=== PATIENT | female | born 1970 | race Caucasian/White ===

== ENCOUNTER 2019-06-28 17:41 | Emergency (ER) | payer OTHER ==
[~2019-06-28] VITALS: Ht 152.4 cm; Wt 79.2 kg
[2019-06-28] MEDS ORDERED: OMEP10CASR PO (18:08)
[2019-06-28] MEDS ORDERED: LEVO200T4 PO (18:08)
[2019-06-28] MEDS ORDERED: FURO20TA2 PO (18:08)
[2019-06-28] MEDS ORDERED: FLUO40CA PO (18:08)
[2019-06-28] MEDS ORDERED: TOPA100T12 PO (18:08)
[2019-06-28] MEDS ORDERED: CORE12.5 PO (18:08)
[2019-06-28 18:23] LABS: BASO # 0.1 10^3/uL (0.0-0.2); BASO % 0.8 % (0.0-1.0); EOS # 0.2 10^3/uL (0.0-0.5); EOS % 2.3 % (0.0-3.0); HEMATOCRIT 28.9 % (36.0-47.0); HEMOGLOBIN 8.4 g/dl (12.0-15.5); LYMPH # 2.6 10^3/uL (1.5-5.0); LYMPH % 32.6 % (24.0-44.0); MEAN CORPUSCULAR HEMOGLOBIN 20.3 pg (27.0-33.0); MEAN CORPUSCULAR HGB CONC 29.1 g/dl (32.0-36.5); MONO % 12.5 % (0.0-5.0); NEUTROPHILS # 4.1 10^3/uL (1.5-8.5); NEUTROPHILS % 51.5 % (36.0-66.0); PLATELET COUNT, AUTOMATED 531 10^3/uL (150-450); RED BLOOD COUNT 4.13 10^6/uL (4.00-5.40); WHITE BLOOD COUNT 7.9 10^3/uL (4.0-10.0)
--- NOTE | 2019-06-28 18:28 | REP ---
Portable chest, 05:58 p.m., single AP view with the patient sitting: There are no comparisons. The lung lemus are clear. The cardiac size is normal. The sharon, mediastinum, and skeletal structures are unremarkable. Impression: Negative portable chest. Electronically Signed by Jaswant Hussein MD 06/28/2019 06:19 P
[2019-06-28 18:39] LABS: BLOOD UREA NITROGEN 16 MG/DL (7-18); CALCIUM LEVEL 8.3 MG/DL (8.5-10.1); CARBON DIOXIDE LEVEL 23 MEQ/L (21-32); CHLORIDE LEVEL 110 MEQ/L (98-107); CK-MB VALUE MASS < 1.0 NG/ML (<3.6); CPK CREATINE PHOSPHOKINASE 54 U/L (26-192); CREATININE FOR GFR 0.93 MG/DL (0.55-1.30); GLOMERULAR FILTRATION RATE > 60.0 (>51); GLUCOSE, FASTING 50 MG/DL (70-100); MB/CK RELATIVE INDEX 1.85 (< OR =4); POTASSIUM SERUM 3.6 MEQ/L (3.5-5.1); SODIUM LEVEL 141 MEQ/L (136-145); TROPONIN I < 0.02 NG/ML (< 0.10)
--- NOTE | 2019-06-28 21:04 | ECGEPIP ---
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
--- NOTE | 2019-06-28 21:05 | ECGEPIP ---
[facility] - ED Test Date: 2019-06-28 Pat Name: PABLO PEARCE Department: Room: - Gender: Female Card Lacer: : 1970 Requested By: Martha Mccormack Order Number: [id number] Reading MD: Martha Mccormack Measurements Intervals [place] Rate: 76 P: 17 [place]: 179 QRS: -16 QRSD: 96 T: 10 QT: 438 QTc: 494 Interpretive Statements SINUS RHYTHM LAD NSTTW abnormalities POSSIBLE SEPTAL INFARCT, AGE INDETERMINATE DECREASED RATE 06/28/19 Electronically Signed on 06-28-2019 21:05:11 EDT by Martha Mccormack
[2019-06-28 22:10] VITALS: BP 131/75
[2019-06-28 22:27] LABS: CK-MB VALUE MASS 1.1 NG/ML (<3.6); CPK CREATINE PHOSPHOKINASE 53 U/L (26-192); MB/CK RELATIVE INDEX 2.08 (< OR =4)
[2019-06-28 22:28] LABS: TROPONIN I < 0.02 NG/ML (< 0.10)
--- NOTE | 2019-06-30 07:25 | ECGEPIP ---
[facility] - ED Test Date: 2019-06-28 Pat Name: PABLO TEJEDA Department: Room: - Gender: Female Interpretive Program Coordinator: KCJ : 1970 Requested By: TEE DONALD Order Number: [id number] Reading MD: Martha Mccormack Measurements Intervals [place] Rate: 64 P: 23 [place]: 180 QRS: -20 QRSD: 101 T: 14 QT: 464 QTc: 482 Interpretive Statements SINUS RHYTHM PROLONGED QT INTERVAL LAD DELAYED R PROGRESSION DECREASED RATE 06/28/19 18:24 Electronically Signed on 06-30-2019 7:24:54 EDT by Martha Mccormack
== END 2019-06-28 22:44 | disposition home or self-care (01) ==
LOC: M ED 17:41
DX: R07.89 Other chest pain (principal); I51.9 Heart disease, unspecified; I10 Essential (primary) hypertension; K21.9 Gastro-esophageal reflux disease without esophagitis; E07.9 Disorder of thyroid, unspecified; F17.200 Nicotine dependence, unspecified, uncomplicated; Z79.899 Other long term (current) drug therapy; Z88.0 Allergy status to penicillin; Z88.8 Allergy status to other drugs, medicaments and biological substances

== ENCOUNTER 2019-12-06 09:44 | Inpatient (IN) | payer OTHER, SELFPAY ==
[~2019-12-06] VITALS: Ht 160 cm; Wt 79.9 kg
[2019-12-06] VITALS (16 sets, daily range): BP systolic 101–172; BP diastolic 54–85
[~2019-12-06 09:44] MED LIST: CARVedilol 12.5 MG TAB PO SCH; CORE12.5 PO; FLUO40CA PO; FLUoxetine 20 MG CAP PO SCH; FURO20TA2 PO; LEVO200T4 PO; NICOTINE 14 MG/24 HR TRANSDERMAL TD SCH; OMEP10CASR PO; TOPA100T12 PO; lisinopriL 10 MG TAB PO SCH
[2019-12-06 10:39] LABS: BASO # 0.1 10^3/uL (0.0-0.2); EOS # 0.3 10^3/uL (0.0-0.5); EOS % 3.1 % (0.0-3.0); HEMATOCRIT 31.2 % (36.0-47.0); HEMOGLOBIN 8.9 g/dl (12.0-15.5); LYMPH # 2.6 10^3/uL (1.5-5.0); LYMPH % 29.3 % (24.0-44.0); MEAN CORPUSCULAR HEMOGLOBIN 19.1 pg (27.0-33.0); MEAN CORPUSCULAR HGB CONC 28.5 g/dl (32.0-36.5); MEAN CORPUSCULAR VOLUME 66.8 fl (80.0-96.0); MONO # 0.8 10^3/uL (0.0-0.8); MONO % 9.1 % (0.0-5.0); NEUTROPHILS # 5.1 10^3/uL (1.5-8.5); NEUTROPHILS % 57.3 % (36.0-66.0); PLATELET COUNT, AUTOMATED 434 10^3/uL (150-450); RED BLOOD COUNT 4.67 10^6/uL (4.00-5.40); WHITE BLOOD COUNT 8.9 10^3/uL (4.0-10.0)
[2019-12-06] MEDS ORDERED: FUROSEMIDE 20 MG TAB PO ONE (10:45)
[2019-12-06] MEDS ORDERED: CARVedilol 12.5 MG TAB PO ONE (10:45)
[2019-12-06 10:58] LABS: ALBUMIN 3.9 GM/DL (3.2-5.2); ALT/SGPT 18 U/L (12-78); BILIRUBIN,DIRECT < 0.1 MG/DL (0.0-0.2); BILIRUBIN,TOTAL 0.2 MG/DL (0.2-1.0); TOTAL PROTEIN 8.4 GM/DL (6.4-8.2)
[2019-12-06] MEDS ORDERED: LORazepam 1 MG TAB PO ONE (11:00)
--- NOTE | 2019-12-06 11:14 | REP ---
Head CT without contrast: History: Hypertensive emergency. Comparison study: No comparison study. CT findings: Bone window settings demonstrate an intact bony calvarium. There is no evidence of skull fracture or incidental bony calvarial lesion. The visualized paranasal sinuses appear clear. No intraorbital abnormality is seen. On soft tissue window setting images; the lateral, third, and fourth ventricles are normal in size and position. Chamorro-white differentiation pattern is normal above and below the tentorium. There are is no evidence of intracranial hemorrhage. No mass, edema, infarction, or midline shift is seen. No extra-axial fluid collection is appreciated. Impression: Negative noncontrast head CT. Electronically Signed by Benjie Casey MD 12/06/2019 11:11 A
[2019-12-06 11:18] LABS: FREE T4 0.77 NG/DL (0.76-1.46)
--- NOTE | 2019-12-06 11:26 | REP ---
Chest x-ray: Single PA view. History: Hypertensive emergency. Comparison chest x-ray June 28, 2019. Findings: The lungs are symmetrically aerated and clear. Heart is not enlarged. EKG electrodes are seen. Pulmonary vasculature is not increased. No bony abnormalities seen. Impression: Negative PA chest x-ray. Electronically Signed by Benjie Casey MD 12/06/2019 11:18 A
[2019-12-06] MEDS ORDERED: niCARdipine IV 40 MG in IV 1 EA IV SCH ×3 (11:45→19:42)
[2019-12-06 12:20] LABS: CK-MB VALUE MASS 1.4 NG/ML (<3.6); CPK CREATINE PHOSPHOKINASE 99 U/L (26-192); MB/CK RELATIVE INDEX 1.41 (< OR =4); TROPONIN I < 0.02 NG/ML (< 0.10)
[2019-12-06] MEDS ORDERED: MOM 30ML SUSPENSION UDC PO PRN (12:30)
[2019-12-06] MEDS ORDERED: MAALOX 30 ML SUSP *UDC PO PRN (12:30)
[2019-12-06] MEDS ORDERED: LORazepam 2 MG/ML VIAL (J2060) IV PRN (12:30)
[2019-12-06] MEDS ORDERED: CARV12.5 PO (12:35)
[2019-12-06] MEDS ORDERED: ACET-683 PO (12:35)
[2019-12-06] MEDS ORDERED: ADVI100T PO (12:35)
[2019-12-06] MEDS ORDERED: OMEP20TA9 PO (12:35)
[2019-12-06] MEDS ORDERED: LEVO100T54 PO (12:35)
[2019-12-06] MEDS ORDERED: FURO20TA2 PO (12:35)
[2019-12-06] MEDS ORDERED: IBUP-1730 PO (12:38)
--- NOTE | 2019-12-06 12:50 | HPEPDOC ---
General Date of Admission Dec 06, 2019 at 12:24 Date of Service: Dec 06, 2019 Chief Complaint The patient is a 49-year-old female admitted with a reason for visit of Hypertensive Urgency. Source: RN/, RN notes reviewed, Old records Exam Limitations: No limitations Timing/Duration: Other (referred from ophthalmology clinic) Severity: Other (not applicable) Associated Symptoms: Other (not applicable) History of Present Illness 49 years old white female who looks very upset, crying, refusing to me provide me with any history of refusing to talk about her medical problems [facility] pressure. As per ED records, patient also complained of headache and she is been out of her meds for some time and she is been good and "going through a lot". History was obtained from M.D. nursing records. Patient's old records were reviewed as well, which include one Previous ED visit Home Medications Scheduled Carvedilol (Carvedilol) 12.5 Mg Tablet, 12.5 MG PO BID, (Reported) Furosemide (Furosemide) 20 Mg Tablet, 20 MG PO DAILY, (Reported) Levothyroxine Sodium (Levoxyl) 100 Mcg Tablet, 100 MCG PO DAILY, (Reported) Omeprazole (Omeprazole) 20 Mg Tablet.dr, 20 MG PO BID, (Reported) Scheduled PRN Acetaminophen (Acetaminophen) 500 Mg Tablet, 500 MG PO Q6H PRN for HEADACHE, (Reported) Ibuprofen (Ibuprofen) 200 Mg Tablet, 800 MG PO Q8H PRN for HEADACHE, (Reported) Allergies Coded Allergies: butorphanol (Verified Allergy, Intermediate, rash, 12/06/19) erythromycin base (Verified Allergy, Intermediate, rash, 12/06/19) melatonin (Verified Allergy, Intermediate, rash, 12/06/19) meperidine (Verified Allergy, Intermediate, rash, 12/06/19) phenytoin (Verified Allergy, Intermediate, rash , 12/06/19) Past Medical History Medical History Past medical, hypertension, hypothyroid, GERD, depression, headache Surgical History Appendectomy and left knee surgery, right shoulder surgery, tubal ligation and hysterectomy Social History * Smoker: current smoker Alcohol: Denies Drugs: denies A-FIB/CHADSVASC A-FIB History Current/History of A-Fib/PAF?: No Review of Systems Constitutional: Reports: Other (. Unable to obtained review of system as patient refuses to give me any history or speak to me) Physical Examination General Exam: Positive: Alert, Other (. Uncooperative, very upset, crying) Eye Exam: Positive: PERRLA, Conjunctiva & lids normal ENT Exam: Positive: Atraumatic Neck Exam: Positive: Supple Chest Exam: Positive: Clear to auscultation, Normal air movement Heart Exam: Positive: Rate Normal, Normal S1, Normal S2 Abdomen Exam: Positive: Normal bowel sounds, Soft Extremity Exam: Positive: Normal pulses Skin Exam: Positive: Nl turgor and temperature Neuro Exam: Positive: Other (patient not cooperative with neuro exam) Psych Exam: Positive: Other (, depression, crying, bizarre affect) Vital Signs Vital Signs Date Time Temp Pulse Resp B/P (MAP) Pulse Ox O2 Delivery O2 Flow Rate FiO2 12/06/19 12:00 98 20 275/155 (195) 99 Room Air 12/06/19 09:44 97.6 Laboratory Data Labs 24H Laboratory Tests 2 12/06/19 10:19: Immature Granulocyte % (Auto) 0.2, Neutrophils (%) (Auto) 57.3, Lymphocytes (%) (Auto) 29.3, Monocytes (%) (Auto) 9.1H, Eosinophils (%) (Auto) 3.1H, Basophils (%) (Auto) 1.0, Neutrophils # (Auto) 5.1, Lymphocytes # (Auto) 2.6, Monocytes # (Auto) 0.8, Eosinophils # (Auto) 0.3, Basophils # (Auto) 0.1, Nucleated Red Blood Cells % (auto) 0.0, Total Bilirubin 0.2, Direct Bilirubin < 0.1, Aspartate Amino Transf (AST/SGOT) 13, Alanine Aminotransferase (ALT/SGPT) 18, Alkaline Phosphatase 72, Total Creatine Kinase 99, Creatine Kinase MB 1.4, Creatine Kinase MB Relative Index 1.41, Troponin I < 0.02, Total Protein 8.4H, Albumin 3.9, Albumin/Globulin Ratio 0.87L, Thyroid Stimulating Hormone (TSH) 95.700H, Free Thyroxine 0.77 12/06/19 10:26: POC Glucose (Misc Panel) 99, POC Sodium (Misc Panel) 137, POC Potassium (Misc Panel) 3.7, POC Chloride (Misc Panel) 101, POC Total CO2 (Misc Panel) 28.0H, POC Blood Urea Nitrogen (Misc Panel 16, POC Ionized Calcium (Misc Panel) 4.6, POC Creatinine (Misc Panel) 1.1, POC Hematocrit (Misc Panel) 33.0L CBC/BMP Laboratory Tests 12/06/19 10:19 Problems (1) Hypertensive urgency Status: Acute Problem Text: 49 years old white female with past medical history of hypertension, on Coreg and Lasix at home. His noncompliance to med. Has not been taking her meds for some time. I'm unable to get good history, as she refuses to talk to me are cooperate with her history. Pt is very upset and agitated and easy crying in bed and does not wish to talk to anybody. . She was started on a Cardene drip in ED and we were asked to admit patient for further workup and treatment Admit patient to ICU Telemetry monitoring Start nicardipine drip with the rapid titration to achieve systolic blood pressure 150 or less Start Coreg 12.5 mg by mouth twice a day Hold by mouth Lasix Hold by mouth Topamax Serial troponin Echocardiogram DVT prophylaxis with heparin 2 g sodium diet Bed rest with bathroom privileges (2) Hypothyroidism Status: Chronic Problem Text: Patient is noncompliant to her meds. She was prescribed levothyroxine 200 g by mouth daily. Will restart her meds today with first dose stat , Free T4 also has been ordered (3) Depression Status: Chronic Problem Text: Will restart patient's fluoxetine 40 mg by mouth daily and I will also start 81 1 mg IV every 4 hours when necessary for anxiety Hold Topamax (4) Noncompliance with medication regimen Status: Acute Problem Text: Patient will be counseled 1. She is more cooperative and communicative Plan / VTE VTE Prophylaxis Ordered?: Yes WILFRID BARON MD Dec 06, 2019 12:49
[2019-12-06] MEDS: ACETAMINOPHEN TAB 650MG DOSE (2X325MG) PO PRN ×2 (13:32→22:44)
[2019-12-06] MEDS: niCARdipine IV 40 MG in IV 1 EA IV SCH ×2 (14:00→15:18)
[2019-12-06] MEDS: DOCUSATE SODIUM 100 MG CAP PO SCH ×2 (14:01→20:12)
[2019-12-06] MEDS: HEPARIN SOD (PORCINE) 5000 UNITS/ML VIAL (J1644 PER 1000UNITS) SC SCH ×2 (14:08→21:17)
[2019-12-06] MEDS: LEVOTHYROXINE 100MCG TABLET (0.1MG) PO SCH (14:08)
[2019-12-06 19:45] LABS: APPEARANCE, URINE CLEAR (CLEAR); BACTERIA, URINE AUTO NEGATIVE (NEGATIVE); BILIRUBIN, URINE AUTO NEGATIVE (NEGATIVE); BLOOD, URINE BLOOD NEGATIVE (NEGATIVE); COLOR, URINE STRAW (YELLOW); GLUCOSE, URINE (UA) AUTO NEGATIVE (NEGATIVE); KETONE, URINE AUTO NEGATIVE (NEGATIVE); LEUKOCYTE ESTERASE, URINE AUTO NEGATIVE (NEGATIVE); NITRITE, URINE AUTO NEGATIVE (NEGATIVE); PROTEIN, URINE AUTO NEGATIVE (NEGATIVE); RBC, URINE AUTO 2 /HPF (0-3); SQUAMOUS EPITHELIAL CELL UR AU 1 /HPF (0-6); UROBILINOGEN, URINE AUTO 0.2 mg/dL (0.0-2.0); WBC, URINE AUTO 1 /HPF (0-3)
[2019-12-06] MEDS ORDERED: PILL CUTTER 1 EACH XX PRN (19:45)
--- NOTE | 2019-12-06 20:39 | ECGEPIP ---
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
[2019-12-06] MEDS ORDERED: zolPIDEM TARTRATE 5 MG TAB PO SCH (21:00)
[2019-12-07] VITALS (11 sets, daily range): BP systolic 102–160; BP diastolic 54–92
[2019-12-07] MEDS ORDERED: zolPIDEM TARTRATE 5 MG TAB PO ONE (01:30)
[2019-12-07] MEDS: ACETAMINOPHEN TAB 650MG DOSE (2X325MG) PO PRN (04:43)
[2019-12-07 05:13] LABS: HEMATOCRIT 30.3 % (36.0-47.0); HEMOGLOBIN 8.8 g/dl (12.0-15.5); MEAN CORPUSCULAR HEMOGLOBIN 19.3 pg (27.0-33.0); MEAN CORPUSCULAR VOLUME 66.6 fl (80.0-96.0); PLATELET COUNT, AUTOMATED 402 10^3/uL (150-450); RED BLOOD COUNT 4.55 10^6/uL (4.00-5.40); WHITE BLOOD COUNT 9.3 10^3/uL (4.0-10.0)
[2019-12-07 05:37] LABS: ALBUMIN 3.5 GM/DL (3.2-5.2); BILIRUBIN,TOTAL 0.2 MG/DL (0.2-1.0); CALCIUM LEVEL 8.6 MG/DL (8.5-10.1); CREATININE FOR GFR 1.07 MG/DL (0.55-1.30); GLOMERULAR FILTRATION RATE 57.8 (>51); POTASSIUM SERUM 3.6 MEQ/L (3.5-5.1); TOTAL PROTEIN 7.7 GM/DL (6.4-8.2)
[2019-12-07] MEDS: LEVOTHYROXINE 100MCG TABLET (0.1MG) PO SCH (05:48)
[2019-12-07] MEDS: HEPARIN SOD (PORCINE) 5000 UNITS/ML VIAL (J1644 PER 1000UNITS) SC SCH (05:48)
--- NOTE | 2019-12-07 07:24 | ECGEPIP ---
[facility] Test Date: 2019-12-07 Pat Name: PABLO TEJEDA Department: Room: [place] [address] Gender: Female Culture Room Worker: RAJAT : 1970 Requested By: WILFRID BARON Order Number: [id number] Reading MD: Aishwarya Anderson Measurements Intervals [place] Rate: 68 P: 17 CT: 175 QRS: -36 QRSD: 97 T: 106 QT: 472 QTc: 505 Interpretive Statements SINUS RHYTHM LAE LEFT AXIS DEVIATION ST DEVIATION AND MODERATE T-WAVE ABNORMALITY, CONSIDER LATERAL ISCHEMIA OR LVH with REPOLAR ABN PRWP 2ND TO Left ventricular hypertrophy OR OLD ANT INFARCT Left anterior fascicular block RESOLVED C/W 12/06/19 PROLONGED QTC AGAIN NOTED Electronically Signed on 12-07-2019 7:23:34 EDT by Aishwarya Anderson
[2019-12-07] MEDS ORDERED: CARVedilol 12.5 MG TAB PO SCH (09:00)
[2019-12-07] MEDS ORDERED: PANTOPRAZOLE 40MG TAB (PROTONIX) PO SCH (09:00)
[2019-12-07 09:11] LABS: PERCENT SATURATION 4.1 % (13.2-45.0)
[2019-12-07] MEDS ORDERED: SYNT125T PO (09:38)
[2019-12-07] MEDS ORDERED: LISI10TA4 PO (09:38)
[2019-12-07] MEDS ORDERED: CARV12.5 PO (09:38)
[2019-12-07] MEDS ORDERED: PANT40TA3 PO (09:38)
[2019-12-07] MEDS ORDERED: FERR325T3 PO (09:39)
[2019-12-07 10:13] LABS: FOLATE 18.1 NG/ML (>5.4)
--- NOTE | 2019-12-07 12:49 | DS.PDOC ---
Discharge Summary General Date of Admission Dec 06, 2019 at 12:24 Date of Discharge 12/07/19 Discharge Summary PROCEDURES PERFORMED DURING STAY: [None]. DISCHARGE DIAGNOSES: Hypertensive urgency Severe iron deficiency Anemia Uncontrolled hypothyroidism Hemorrhoids Diverticulosis GERD COMPLICATIONS/CHIEF COMPLAINT: Hypertensive Urgency. HISTORY OF PRESENT ILLNESS: See history and physical HOSPITAL COURSE: 49 years old white female with PMH of hypertension, hypothyroid, GERD, depression resident of [place] came for first visit with new PMD in [place] and was found to have hypertensive urgency so was sent to the ED. As per patient she has not had any regular medical care for the past 2 years. She has been going to Urgent care when she would run out of her medications. This time she ran out of her medications about 3 weeks ago. Her hypertensive urgency was managed initially with IV medications then she was switched over to lisinopril , her coreg was continued. SHe was also noted to be anemic. Her ferritin level was found to be very low at 3. She was started on oral supplements. Her Vit B12 and Folate levels were normal. She does says that she has frequent hemorrhoidal bleeding. She reported that she had a colonoscopy about 2 to 3 years ago and they found diverticulosis and hemorrhoids. SHe also had an EGD which was ok. Her synthoid dosage was increased on discharge. DISCHARGE MEDICATIONS: Please see below. ALLERGIES: Please see below. PHYSICAL EXAMINATION ON DISCHARGE: VITAL SIGNS: Please see below. GENERAL: Alert , oriented x 3, sitting up in bed in noacute distress HEENT: Normocephalic and atraumatic, moist mucous membranes anicteric eyes. NECK: No JVD, supple, no thyromegaly CARDIOVASCULAR EXAMINATION: Regular, rate normal, no rub , murmur or gallop RESPIRATORY EXAMINATION: Bilateral vesicular breath sounds, no added sounds. ABDOMINAL EXAMINATION: Soft Nontender EXTREMITIES: No edema NEUROLOGICAL EXAMINATION: No focal neurodeficits LABORATORY DATA: Please see below. ACTIVITY: [As tolerated]. DIET: 2 gm sodium DISPOSITION: 07 Against Medical Advice. DISCHARGE INSTRUCTIONS: PMD in 1 week DISCHARGE CONDITION: [Stable]. TIME SPENT ON DISCHARGE: 35 minutes. Vital Signs/I&Os Vital Signs Date Time Temp Pulse Resp B/P (MAP) Pulse Ox O2 Delivery O2 Flow Rate FiO2 12/07/19 09:00 78 16 160/92 (114) 99 Room Air 12/07/19 07:36 98.0 I&O- Last 24 Hours up to 6 AM 12/07/19 06:00 Intake Total 1680 ml Output Total 1450 ml Balance 230 ml Laboratory Data Labs 24H Laboratory Tests 2 12/06/19 18:49: Troponin I < 0.02 12/06/19 19:22: Urine Color STRAW, Urine Appearance CLEAR, Urine pH 8.0, Urine Specific [place] 1.010, Urine Protein NEGATIVE, Urine Glucose (Auto)(UA) NEGATIVE, Urine Ketones (Auto) NEGATIVE, Urine Blood NEGATIVE, Urine Nitrite NEGATIVE, Urine Bilirubin NEGATIVE, Urine Urobilinogen 0.2, Urine Leukocyte Esterase (Auto) NEGATIVE, Urine WBC (Auto) 1, Urine RBC (Auto) 2, Urine Hyaline Casts (Auto) 0, Urine Bacteria (Auto) NEGATIVE, Urine Squamous Epithelial Cells 1, Urine Sperm (Auto) 12/06/19 22:39: Troponin I < 0.02 12/07/19 04:39: Nucleated Red Blood Cells % (auto) 0.0, Anion Gap 7L, Glomerular Filtration Rate 57.8, Calcium Level 8.6, Total Bilirubin 0.2, Aspartate Amino Transf (AST/SGOT) 14, Alanine Aminotransferase (ALT/SGPT) 17, Alkaline Phosphatase 63, Total Protein 7.7, Albumin 3.5, Albumin/Globulin Ratio 0.83L 12/07/19 08:15: Iron Level 19L, Total Iron Binding Capacity 465H, Transferrin % Saturation 4.1L, Ferritin 3L, Vitamin B12 Level 516, Folate 18.1 CBC/BMP Laboratory Tests 12/07/19 04:39 Discharge Medications Scheduled Carvedilol (Carvedilol) 12.5 Mg Tablet, 12.5 MG PO BID Ferrous Sulfate (Ferrous Sulfate) 325 Mg Tablet.dr, 1 TAB PO BID Furosemide (Furosemide) 20 Mg Tablet, 20 MG PO DAILY, (Reported) Levothyroxine Sodium (Levoxyl) 100 Mcg Tablet, 100 MCG PO DAILY, (Reported) Levothyroxine Sodium (Synthroid) 125 Mcg Tablet, 1 TAB PO DAILY Lisinopril (Lisinopril) 10 Mg Tablet, 10 MG PO DAILY Omeprazole (Omeprazole) 20 Mg Tablet.dr, 20 MG PO BID, (Reported) Pantoprazole Sodium (Pantoprazole Sodium) 40 Mg Tablet.dr, 40 MG PO DAILY Scheduled PRN Acetaminophen (Acetaminophen) 500 Mg Tablet, 500 MG PO Q6H PRN for HEADACHE, (Reported) Ibuprofen (Ibuprofen) 200 Mg Tablet, 800 MG PO Q8H PRN for HEADACHE, (Reported) Allergies Coded Allergies: butorphanol (Verified Allergy, Intermediate, rash, 12/06/19) erythromycin base (Verified Allergy, Intermediate, rash, 12/06/19) melatonin (Verified Allergy, Intermediate, rash, 12/06/19) meperidine (Verified Allergy, Intermediate, rash, 12/06/19) phenytoin (Verified Allergy, Intermediate, rash , 12/06/19) RIGOBERTO RILEY MD Dec 07, 2019 12:49
--- NOTE | 2019-12-08 23:06 | ECHO ---
DATE OF PROCEDURE: 12/06/2019 AGE: 49 GENDER: Female HEIGHT: 65 inches WEIGHT: 183 pounds BODY SURFACE AREA: 1.901 m2 PATIENT LOCATION: Inpatient, PCU, room 3210 REFERRING PHYSICIAN: Dr. Jensen INDICATION: Hypertensive urgency 2D MEASUREMENTS: RV: 3.7 cm LV: 4.3 cm Septum: 1.5 cm Posterior wall: 1.5 cm Aortic root: 3.3 cm LA: 4.6 cm LVEF: 75-80% DOPPLER MEASUREMENTS: AV: 1.34 m/s LVOT: 0.96 m/s LVOT diameter: 2.2 cm MV-E: 80, A: 110, EA ratio: 0.7 Early mitral deceleration time: 148 ms E prime medial: 6.5 A prime medial: 6.9 E prime lateral: 4.4 Average E/E prime ratio: 14.7/PCWP: 20 mmHg PV: 1.0 m/s Pulmonary artery acceleration time: 105 ms PASP: 34 mmHg IVC: 1.6 cm COMMENTS Normal sinus rhythm without intraventricular conduction disturbance. M-mode and two-dimensional echocardiography was performed with pulsed, continuous wave, color flow and tissue Doppler studies. Moderate concentric left ventricle hypertrophy with hyperkinetic wall motion. Moderately dilated left atrium with grade 1 LV diastolic dysfunction and elevated estimated mean left atrial pressure. Normal right heart chamber sizes and motion with Doppler evidence of mild pulmonary hypertension. Normal IVC size and collapse against an elevated central venous pressure. Three equal size aortic cusps with slightly thickened cusp edges but adequate cusp separation and mild insufficiency. Normal aortic dimensions. Normal-appearing mitral valvular apparatus with very mild insufficiency. Normal appearing tricuspid valve with only trace insufficiency. No apparent intracardiac mass or pericardial effusion.
== END 2019-12-07 09:27 | disposition left against medical advice (07) | DRG 199 ==
LOC: M ED 09:44 → M ED INP 12:24 → ENRESERV 12:33 → M ICU 13:50
PROVIDERS: ADMIT Internal Medicine; ATTEND Internal Medicine Nephrology
DX: I16.0 Hypertensive urgency (principal); F32.9 Major depressive disorder, single episode, unspecified; D50.9 Iron deficiency anemia, unspecified; E03.9 Hypothyroidism, unspecified; F17.200 Nicotine dependence, unspecified, uncomplicated; K57.30 Diverticulosis of large intestine without perforation or abscess without bleeding; K64.8 Other hemorrhoids; K21.9 Gastro-esophageal reflux disease without esophagitis; Z79.899 Other long term (current) drug therapy; Z88.8 Allergy status to other drugs, medicaments and biological substances; Z91.14 Patient's other noncompliance with medication regimen

== ENCOUNTER 2024-12-23 22:20 | Inpatient (IN) | payer MEDICAID, SELFPAY ==
[~2024-12-23] VITALS: Ht 162.6 cm; Wt 65.0 kg
[~2024-12-23 22:20] MED LIST changes: +ACET-683 PO; +ADVI100T PO; +CARV12.5 PO; -CARVedilol 12.5 MG TAB PO SCH; +FERR325T3 PO; -FLUoxetine 20 MG CAP PO SCH; +IBUP-1730 PO; +LEVO100T54 PO; +LISI10TA22 PO; -NICOTINE 14 MG/24 HR TRANSDERMAL TD SCH; +OMEP-611 PO; +PANT40TA29 PO; +SYNT125T PO; -lisinopriL 10 MG TAB PO SCH
[2024-12-23 23:24] LABS: HEMATOCRIT 26.7 % (36.0-47.0); HEMOGLOBIN 7.5 g/dl (12.0-15.5); MEAN CORPUSCULAR HEMOGLOBIN 18.8 pg (27.0-33.0); MEAN CORPUSCULAR HGB CONC 28.1 g/dl (32.0-36.5); MEAN CORPUSCULAR VOLUME 66.8 fl (80.0-96.0); PLATELET COUNT, AUTOMATED 471 10^3/uL (150-450); WHITE BLOOD COUNT 8.3 10^3/uL (4.0-10.0)
[2024-12-23 23:37] LABS: ETHYL ALCOHOL (ETHANOL) 0.165 % (0.000-0.010)
[2024-12-23 23:39] LABS: ALBUMIN 3.7 G/DL (3.2-5.2); ALKALINE PHOSPHATASE 81 U/L (35-104); ALT/SGPT 16 U/L (7.0-40); AST/SGOT 17 U/L (<34); BILIRUBIN,DIRECT < 0.1 MG/DL (<0.4); BILIRUBIN,TOTAL < 0.2 MG/DL (0.3-1.2); BLOOD UREA NITROGEN 15 MG/DL (9-23); CALCIUM LEVEL 9.2 MG/DL (8.5-10.1); CARBON DIOXIDE LEVEL 23 MMOL/L (20-31); CHLORIDE LEVEL 105 MMOL/L (98-107); CREATININE FOR GFR 0.87 MG/DL (0.55-1.30); GLOMERULAR FILTRATION RATE > 60.0 (>51); GLUCOSE, FASTING 102 MG/DL (60-100); POTASSIUM SERUM 4.2 MMOL/L (3.5-5.1); SALICYLATE LEVEL < 3.0 MG/DL (<30); SODIUM LEVEL 142 MMOL/L (136-145); TOTAL PROTEIN 7.7 G/DL (5.7-8.2)
[2024-12-23 23:57] LABS: AMPHETAMINES LEVEL URINE NEGATIVE (NEGATIVE)
[2024-12-23 23:58] LABS: BARBITURATES URINE NEGATIVE (NEGATIVE); BENZODIAZEPINES URINE NEGATIVE (NEGATIVE); CANNABINOIDS URINE NEGATIVE (NEGATIVE); COCAINE METABOLITE URINE NEGATIVE (NEGATIVE); METHADONE URINE NEGATIVE (NEGATIVE); OPIATES URINE NEGATIVE (NEGATIVE); PHENCYCLIDINE URINE NEGATIVE (NEGATIVE)
[2024-12-24] VITALS (11 sets, daily range): BP systolic 158–220; BP diastolic 90–126; TEMP 97.6–98.2; O2SAT 97–100
[2024-12-24] MEDS ORDERED: traZODone 50 MG TAB PO PRN (04:10)
[2024-12-24] MEDS ORDERED: MOM 30ML SUSPENSION UDC PO PRN (04:10)
[2024-12-24] MEDS ORDERED: MAALOX 30 ML SUSP *UDC PO PRN (04:10)
[2024-12-24] MEDS ORDERED: diphenhydrAMINE 25MG CAP PO PRN (04:10)
[2024-12-24] MEDS ORDERED: ACETAMINOPHEN 325 MG TAB PO PRN (04:10)
[2024-12-24] MEDS: IBUPROFEN 400MG TAB PO PRN (05:34)
[2024-12-24] MEDS ORDERED: TRAZ-252 PO (06:35)
[2024-12-24] MEDS ORDERED: CARV3.12 PO (06:35)
[2024-12-24] MEDS ORDERED: CYCL-707 PO (06:35)
[2024-12-24] MEDS ORDERED: FLUO-365 PO (06:35)
[2024-12-24] MEDS ORDERED: GABA-1171 PO (06:35)
[2024-12-24] MEDS ORDERED: PANT40TA29 PO (06:35)
[2024-12-24] MEDS ORDERED: LAMO100T3 PO (06:35)
[2024-12-24] MEDS ORDERED: LEVO125T4 PO (06:35)
[2024-12-24] MEDS ORDERED: MELA5TAB20 PO (06:37)
[2024-12-24] MEDS ORDERED: HOME MED LIST COMPLETE! XX SCH (06:40)
[2024-12-24] MEDS ORDERED: LISI10TA22 PO (06:46)
[2024-12-24] MEDS ORDERED: CYCLOBENZAPRINE 10MG TABLET PO PRN (09:20)
[2024-12-24] MEDS ORDERED: PILL CUTTER 1 EACH XX PRN (09:35)
[2024-12-24] MEDS: LEVOTHYROXINE 125MCG TABLET (0.125MG) PO SCH (10:24)
[2024-12-24] MEDS: GABAPENTIN 100 MG CAP PO SCH (11:29)
[2024-12-24] MEDS: PANTOPRAZOLE 40MG TAB (PROTONIX) PO SCH (11:29)
[2024-12-24] MEDS: CARVedilol 3.125 MG TAB PO SCH (11:30)
[2024-12-24] MEDS: THIAMINE 100 MG TAB PO SCH (11:30)
[2024-12-24] MEDS: FOLIC ACID 1MG TAB PO SCH (11:30)
[2024-12-24] MEDS: MULTIVITAMINS/MINERALS THERAP 1 TAB PO SCH (11:31)
[2024-12-24] MEDS: FLUoxetine 20MG CAP PO SCH (11:32)
[2024-12-24] MEDS: LORazepam 2 MG TAB PO PRN (15:22)
[2024-12-24] MEDS: **hydrALAZINE** 10 MG TAB PO ONE (16:57)
[2024-12-24] MEDS: LIDOCAINE 5% (LIDODERM) PATCH TD ONE (17:44)
[2024-12-24] MEDS ORDERED: LISI20TA33 PO (19:09)
[2024-12-24] MEDS ORDERED: lamoTRIgine 100MG TAB PO SCH (21:00)
[2024-12-24] MEDS ORDERED: traZODone 50 MG TAB PO SCH (21:00)
[2024-12-24] MEDS ORDERED: OXAZEPAM 15MG CAP PO SCH (22:00)
[2024-12-25] MEDS ORDERED: LIDOCAINE 5% (LIDODERM) PATCH TD SCH (09:00)
[2024-12-25] MEDS ORDERED: **hydrALAZINE** 10 MG TAB PO SCH (09:00)
== END 2024-12-24 19:52 | disposition home or self-care (01) | DRG 775 ==
LOC: M ED 22:20 → M ED INP 12-24 04:09 → M PSY 12-24 04:57
PROVIDERS: ADMIT Psychiatry & Neurology Neurology; ATTEND Psychiatry & Neurology Neurology
DX: F10.94 Alcohol use, unspecified with alcohol-induced mood disorder (principal); M25.551 Pain in right hip; M25.552 Pain in left hip; G89.29 Other chronic pain; I10 Essential (primary) hypertension; F39 Unspecified mood [affective] disorder; R45.851 Suicidal ideations; F17.200 Nicotine dependence, unspecified, uncomplicated; F43.10 Post-traumatic stress disorder, unspecified; F41.9 Anxiety disorder, unspecified; K21.9 Gastro-esophageal reflux disease without esophagitis; Z88.1 Allergy status to other antibiotic agents; Z88.8 Allergy status to other drugs, medicaments and biological substances; Z79.899 Other long term (current) drug therapy; Z91.51 Personal history of suicidal behavior